=== PATIENT | male | born 1985 | race Hispanic/Latino ===

== ENCOUNTER 2018-09-14 01:00 | Emergency (ER) | payer SELFPAY ==
[2018-09-14 01:08] VITALS: BP 145/88; PULSE 110; RESP 18; TEMP 97; O2SAT 97
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
== END 2018-09-14 01:37 | disposition left against medical advice (07) ==
LOC: H.ER 01:00
DX: S01.111A Laceration without foreign body of right eyelid and periocular area, initial encounter (principal); Y04.8XXA Assault by other bodily force, initial encounter

== ENCOUNTER 2018-09-14 09:46 | Emergency (ER) | payer OTHER ==
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
--- NOTE | 2018-09-14 11:55 | CT ---
Date of service: 09/14/2018 PROCEDURE: CT HEAD WITHOUT CONTRAST. HISTORY: r/o bleed COMPARISON: None available. TECHNIQUE: Axial computed tomography images were obtained through the head/brain without intravenous contrast. Radiation dose: Total exam DLP = 940.72 mGy-cm. This CT exam was performed using one or more of the following dose reduction techniques: Automated exposure control, adjustment of the mA and/or kV according to patient size, and/or use of iterative reconstruction technique. FINDINGS: HEMORRHAGE: No intracranial hemorrhage. BRAIN: Normal brewer-white matter differentiation and density are appreciated throughout the cerebrum and cerebellum with the brainstem appearing unremarkable as well. There is no mass effect. There is no suspicious extra-axial fluid collection and the midline brain anatomy appears diffusely unremarkable. VENTRICLES: Unremarkable. No hydrocephalus. CALVARIUM: No destructive bony lesion or displaced fracture identified including through the skullbase. PARANASAL SINUSES: Unremarkable as visualized. No significant inflammatory changes. MASTOID AIR CELLS: Unremarkable as visualized. No inflammatory changes. OTHER FINDINGS: None. IMPRESSION: Unremarkable unenhanced head CT.
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
[2018-09-14 12:19] VITALS: BP 132/77; PULSE 98; RESP 18; TEMP 98.8; O2SAT 96
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
== END 2018-09-14 12:18 | disposition home or self-care (01) ==
LOC: H.ER 09:46
DX: S00.83XA Contusion of other part of head, initial encounter (principal); Y04.2XXA Assault by strike against or bumped into by another person, initial encounter

== ENCOUNTER 2018-11-22 21:22 | Emergency (ER) | payer OTHER ==
[2018-11-22 21:27] VITALS: RESP 16
[2018-11-22] MEDS ORDERED: Sodium Chloride 0.9% 1,000 ML IV STA (21:41)
[2018-11-22 22:03] LABS: BASO % 0.2 % (0.0-2.0); EOS % 0.1 % (0.0-4.0); HEMOGLOBIN 14.6 g/dL (12.0-18.0); LYMPH # 0.6 K/uL (1.0-4.3); LYMPH % 5.7 % (20.0-40.0); MEAN CELL VOLUME 85.3 fl (80.0-94.0); MEAN CORPUSCULAR HEMOGLOBIN 28.6 pg (27.0-31.0); MEAN CORPUSCULAR HGB CONC 33.5 g/dL (33.0-37.0); MEAN PLATELET VOLUME 7.7 fl (7.2-11.7); MONO # 0.2 K/uL (0.0-0.8); MONO % 1.9 % (0.0-10.0); NEUT # 9.4 K/uL (1.8-7.0); NEUT % 92.1 % (50.0-75.0); PLATELET COUNT 238 K/uL (130-400); RBC 5.11 Mil/uL (4.40-5.90); RED CELL DISTRIBUTION WIDTH 13.6 % (11.5-14.5); WHITE BLOOD COUNT 10.2 K/uL (4.8-10.8)
[2018-11-22 22:14] LABS: ALB/GLOB RATIO 1.3 (1.0-2.1); ALBUMIN 4.7 g/dL (3.5-5.0); ALT/SGPT 46 U/L (21-72); AST/SGOT 28 U/L (17-59); BLOOD UREA NITROGEN 16 mg/dl (9-20); CALCIUM 9.9 mg/dL (8.4-10.2); GFR NON-AFRICAN AMERICAN > 60; LIPASE 103 U/L (23-300)
[2018-11-22 22:50] LABS: LYMPHOCYTE 4 % (20-50); MONOCYTE 2 % (0-10); NEUTROPHIL 94 % (42-75); PLATELET ESTIMATE NORMAL (NORMAL); TOTAL CELLS COUNTED 100
[2018-11-22 22:51] LABS: ANISOCYTOSIS SLIGHT; OVALOCYTES SLIGHT; POIKILOCYTOSIS SLIGHT
--- NOTE | 2018-11-22 22:51 | ED PDOC ---
HPI: Abdomen Time Seen by Provider: 11/22/18 21:36 Chief Complaint (Nursing): Abdominal Pain Chief Complaint (Provider): Abdominal Pain History Per: Patient History/Exam Limitations: no limitations Onset/Duration Of Symptoms: Hrs (x6) Severity: Severe Quality Of Discomfort: "Pain" Associated Symptoms: Vomiting. denies: Fever Additional Complaint(s): 33 year old male with a history of substance abuse disorder and gastritis presents to the ED with vomiting and abdominal pain onset x6 hours. Patient reports his gastritis flares up every x6 months with severe abdominal pain and vomiting, requiring Dilaudid and Zofran. On arrival to ED, patients speech noted to be slurred, but he denies use of drugs or ETOH. Denies chest pain, shortness of breath, fever, or cough. PMD: none provided Past Medical History Reviewed: Historical Data, Nursing Documentation, Vital Signs Vital Signs: Last Vital Signs Temp 97.4 F L 11/22/18 21:24 Pulse 82 11/22/18 21:24 Resp 16 11/22/18 21:24 BP 158/89 H 11/22/18 21:24 Pulse Ox 99 11/22/18 21:24 - Medical History PMH: Gastritis - Surgical History Surgical History: No Surg Hx - Family History Family History: States: Unknown Family Hx - Social History Current smoker - smoking cessation education provided: No Ex-Smoker (has not smoked in the last 12 months): No Alcohol: None Drugs: Denies - Home Medications Home Medications: Ambulatory Orders Medication Instructions Recorded Cephalexin [Keflex] 500 mg PO BID #14 capsule 09/14/18 Naproxen [Naprosyn] 500 mg PO Q12H #20 tab 09/14/18 Esomeprazole Magnesium [Nexium] 20 mg PO QAM #30 ecc 11/22/18 Ondansetron ODT [Zofran ODT] 4 mg PO Q6 PRN #8 odt 11/22/18 - Allergies Allergies/Adverse Reactions: Allergies Allergy/AdvReac Type Severity Reaction Status Date / Time No Known Allergies Allergy Verified 09/14/18 01:04 Review of Systems ROS Statement: Except As Marked, All Systems Reviewed And Found Negative Gastrointestinal: Positive for: Vomiting, Abdominal Pain Physical Exam - Reviewed Nursing Documentation Reviewed: Yes Vital Signs Reviewed: Yes - Physical Exam Appears: Positive for: No Acute Distress Head Exam: Positive for: ATRAUMATIC, NORMOCEPHALIC Skin: Positive for: Normal Color, Warm, Dry Eye Exam: Positive for: EOMI, Normal appearance, PERRL ENT: Positive for: Other (mucous membranes dry) Neck: Positive for: Normal Cardiovascular/Chest: Positive for: Regular Rate, Rhythm. Negative for: Murmur Respiratory: Positive for: Normal Breath Sounds. Negative for: Respiratory Distress Gastrointestinal/Abdominal: Positive for: Normal Exam, Soft. Negative for: Tenderness Back: Positive for: Normal Inspection Extremity: Positive for: Normal ROM (upper and lower). Negative for: Pedal Edema, Deformity Neurologic/Psych: Positive for: Alert, Oriented (x3) - Laboratory Results Result Diagrams: 11/22/18 21:55 11/22/18 21:55 Lab Results: Total Bilirubin 0.3 mg/dl (0.2-1.3) 11/22/18 21:55 AST 28 U/L (17-59) 11/22/18 21:55 ALT 46 U/L (21-72) 11/22/18 21:55 Alkaline Phosphatase 70 U/L (38-126) 11/22/18 21:55 Total Protein 8.3 G/DL (6.3-8.2) H 11/22/18 21:55 Albumin 4.7 g/dL (3.5-5.0) 11/22/18 21:55 Globulin 3.7 gm/dL (2.2-3.9) 11/22/18 21:55 Albumin/Globulin Ratio 1.3 (1.0-2.1) 11/22/18 21:55 Lipase 103 U/L (23-300) 11/22/18 21:55 - ECG O2 Sat by Pulse Oximetry: 99 (RA) Pulse Ox Interpretation: Normal Medical Decision Making Medical Decision Making: Time: 2137 Impression: 33 yo male with vomiting Plan: --labs --IV fluids --Pepcid --Zofran --patient made aware that he will not be receiving any Dilaudid 22:45 Labs reviewed no clinically significant abnormalities. Patient is persistently asking for narcotics. Patient was informed he will not be receiving any narcotics. Patient is stable for discharge, diagnosis is gastritis. Scribe Attestation: Documented by Alice Betancourt, acting as a scribe for David Plummer MD. Provider Scribe Attestation: All medical record entries made by the Scribe were at my direction and personally dictated by me. I have reviewed the chart and agree that the record accurately reflects my personal performance of the history, physical exam, medical decision making, and the department course for this patient. I have also personally directed, reviewed, and agree with the discharge instructions and disposition. Disposition - Clinical Impression Clinical Impression: Gastritis - Patient ED Disposition Is Patient to be Admitted: No - Disposition Disposition: Routine/Home Disposition Time: 22:45 Condition: STABLE Additional Instructions: PRAVIN PUGA, thank you for letting us take care of you today. Your provider was David Plummer MD and you were treated for ABD PAIN. The emergency medical care you received today was directed at your acute symptoms. If you were prescribed any medication, please fill it and take as directed. It may take several days for your symptoms to resolve. Return to the Emergency Department if your symptoms worsen, do not improve, or if you have any other problems. Please contact your doctor or call one of the physicians/clinics you have been referred to that are listed on the Patient Visit Information form that is included in your discharge packet. Bring any paperwork you were given at discharge with you along with any medications you are taking to your follow up visit. Our treatment cannot replace ongoing medical care by a primary care provider outside of the emergency department. Thank you for allowing the [facility] team to be part of your care today. If you had an X-Ray or CT scan: A Radiologist will review the ED reading if any change in treatment is needed we will contact you. If you had a blood, urine, or wound culture: It will take several days for the results, if any change in treatment is needed we will contact you. If you had an STI test: It will take 48 hours for the results. Please call after 1 week if you have not heard back. Prescriptions: Esomeprazole Magnesium [Nexium] 20 mg PO QAM #30 ecc Ondansetron ODT [Zofran ODT] 4 mg PO Q6 PRN #8 odt PRN Reason: Nausea/Vomiting Instructions: Gastritis Forms: [employer] (Icelandic)
[2018-11-22 23:02] VITALS: BP 136/80; PULSE 80; TEMP 98
[2018-11-22 23:26] VITALS: O2SAT 99
--- NOTE | 2018-11-23 10:50 | CARD ---
APPROVED REPORT Date of service: 11/22/2018 EKG Measurement Heart [id number] <Conclusion> Sinus rhythm with marked sinus arrhythmia Otherwise normal ECG
== END 2018-11-22 23:01 | disposition home or self-care (01) ==
LOC: H.ER 21:22
DX: K29.70 Gastritis, unspecified, without bleeding (principal); Z87.891 Personal history of nicotine dependence
CPT/HCPCS: 80053; 80320; 83690; 85025; 93005; 96374; 96375; 99283; J1885; J2405; J7030

== ENCOUNTER 2018-11-24 13:18 | Emergency (ER) | payer OTHER ==
[2018-11-24 13:24] VITALS: BP 143/94; PULSE 90; RESP 14; TEMP 98.6; O2SAT 97
[2018-11-24] MEDS ORDERED: Sodium Chloride 0.9% 1,000 ML IV STA (13:27)
--- NOTE | 2018-11-24 13:40 | ED PDOC ---
HPI: Abdomen Time Seen by Provider: 11/24/18 13:23 Chief Complaint (Nursing): Abdominal Pain Chief Complaint (Provider): Abdominal Pain History Per: Patient History/Exam Limitations: no limitations Onset/Duration Of Symptoms: Hrs Location Of Pain/Discomfort: Epigastric Quality Of Discomfort: "Pain" Associated Symptoms: Nausea, Vomiting. denies: Fever, Diarrhea Additional Complaint(s): 33 year old male presents to the ED for an evaluation of epigastric pain with nausea and vomiting onset today morning. Currently, in the ED patient is requesting Zofran and Dilaudid. Otherwise, patient denies fever, diarrhea and bloody vomiting. PMD: no family provider Past Medical History Reviewed: Historical Data, Nursing Documentation, Vital Signs Vital Signs: Last Vital Signs Temp 98.6 F 11/24/18 13:21 Pulse 90 11/24/18 13:21 Resp 14 11/24/18 13:21 BP 143/94 H 11/24/18 13:21 Pulse Ox 97 11/24/18 13:21 - Medical History PMH: Gastritis - Family History Family History: States: Unknown Family Hx - Social History Drugs: Other (substance abuse) - Home Medications Home Medications: Ambulatory Orders Medication Instructions Recorded Cephalexin [Keflex] 500 mg PO BID #14 capsule 09/14/18 Naproxen [Naprosyn] 500 mg PO Q12H #20 tab 09/14/18 Esomeprazole Magnesium [Nexium] 20 mg PO QAM #30 ecc 11/22/18 Ondansetron ODT [Zofran ODT] 4 mg PO Q6 PRN #8 odt 11/22/18 - Allergies Allergies/Adverse Reactions: Allergies Allergy/AdvReac Type Severity Reaction Status Date / Time No Known Allergies Allergy Verified 11/24/18 13:21 Review of Systems ROS Statement: Except As Marked, All Systems Reviewed And Found Negative Constitutional: Negative for: Fever Gastrointestinal: Positive for: Nausea, Vomiting, Abdominal Pain. Negative for: Diarrhea Physical Exam - Reviewed Nursing Documentation Reviewed: Yes Vital Signs Reviewed: Yes - Physical Exam Appears: Positive for: Non-toxic, No Acute Distress Head Exam: Positive for: ATRAUMATIC, NORMAL INSPECTION, NORMOCEPHALIC Skin: Positive for: Normal Color, Warm, Dry Eye Exam: Positive for: EOMI, Normal appearance, PERRL ENT: Positive for: Normal ENT Inspection Neck: Positive for: Normal, Painless ROM, Supple Cardiovascular/Chest: Positive for: Regular Rate, Rhythm Respiratory: Positive for: Normal Breath Sounds Gastrointestinal/Abdominal: Positive for: Tenderness (epigastric) Back: Positive for: Normal Inspection. Negative for: L CVA Tenderness, R CVA Tenderness Extremity: Positive for: Normal ROM. Negative for: Tenderness, Pedal Edema, Deformity Neurologic/Psych: Positive for: Alert, Oriented (x3) - Laboratory Results Result Diagrams: 11/24/18 13:40 11/24/18 13:40 - ECG O2 Sat by Pulse Oximetry: 97 (RA) Pulse Ox Interpretation: Normal Medical Decision Making Medical Decision Making: Time: 1326 Impression: recurrent gastritis and patient was assured he would not receive Dilaudid Plan: --Alcohol serum --CMP --Lipase --Drug screen --Lipase --CBC w/ differential --Normal Saline 200 mls/hr --Pepcid 20mg --Zofran Inj 4mg --Reevaluation 1530 Patient left ER before treatment complete. Scribe Attestation: Documented by Kelechi Mark, acting as a scribe for Erwin López MD. Provider Scribe Attestation: All medical record entries made by the Scribe were at my direction and personally dictated by me. I have reviewed the chart and agree that the record accurately reflects my personal performance of the history, physical exam, medical decision making, and the department course for this patient. I have also personally directed, reviewed, and agree with the discharge instructions and disposition. Disposition - Clinical Impression Clinical Impression: Gastritis - Patient ED Disposition Is Patient to be Admitted: No - Disposition Disposition: Left W/O Treatment Disposition Time: 15:48 Condition: FAIR Instructions: Gastritis Forms: [employer] (Welsh)
[2018-11-24 14:15] LABS: BASO % 0.3 % (0.0-2.0); EOS # 0.1 K/uL (0.0-0.7); EOS % 0.5 % (0.0-4.0); HEMOGLOBIN 14.7 g/dL (12.0-18.0); LYMPH # 0.9 K/uL (1.0-4.3); LYMPH % 8.3 % (20.0-40.0); MEAN CELL VOLUME 83.9 fl (80.0-94.0); MEAN CORPUSCULAR HEMOGLOBIN 28.8 pg (27.0-31.0); MEAN CORPUSCULAR HGB CONC 34.3 g/dL (33.0-37.0); MEAN PLATELET VOLUME 7.9 fl (7.2-11.7); MONO # 0.7 K/uL (0.0-0.8); MONO % 6.1 % (0.0-10.0); NEUT % 84.8 % (50.0-75.0); RBC 5.1 Mil/uL (4.40-5.90); RED CELL DISTRIBUTION WIDTH 13.2 % (11.5-14.5); WHITE BLOOD COUNT 10.6 K/uL (4.8-10.8)
[2018-11-24 14:34] LABS: ALB/GLOB RATIO 1.3 (1.0-2.1); ALBUMIN 4.6 g/dL (3.5-5.0); ALT/SGPT 47 U/L (21-72); AST/SGOT 37 U/L (17-59); BLOOD UREA NITROGEN 22 mg/dl (9-20); CALCIUM 9.7 mg/dL (8.4-10.2); GFR NON-AFRICAN AMERICAN > 60; LIPASE 138 U/L (23-300)
[2018-11-24] MEDS ORDERED: Alum-Mag Hydrox-Simethicone Susp (30 mL) PO ONE (14:55)
[2018-11-24] MEDS ORDERED: Atrop/Hyos/Scop/PhenoB Elixir PO ONE (14:55)
[2018-11-24] MEDS ORDERED: Potassium CL 10 MEQ/50 ML 50 ML IVPB SCH (15:00)
== END 2018-11-24 15:55 | disposition left against medical advice (07) ==
LOC: H.ER 13:18
DX: K29.70 Gastritis, unspecified, without bleeding (principal)
CPT/HCPCS: 80053; 80320; 83690; 85025; 96361; 96374; 96375; 96376; 99283; J2405; J3480; J7030